=== PATIENT | male | born 1995 | race Hispanic/Latino ===

== ENCOUNTER 2023-07-23 05:53 | Day surgery (SDC) | payer OTHER ==
[2023-07-23] VITALS (12 sets, daily range): BP systolic 107–136; BP diastolic 68–92; PULSE 79–97; RESP 16–18
[~2023-07-23] VITALS: Ht 167.6 cm; Wt 156.8 kg
[~2023-07-23 05:53] MED LIST: ERGO500093 PO; TIRZ2.5P SQ
[2023-07-23] MEDS: 0.9%NACL 1000ML 1,000 ML IV ONE (07:14)
[2023-07-23] MEDS ORDERED: PROPOFOL 10 MG/ML 20ML VIAL IV ONE ×2 (08:14)
== END 2023-07-23 09:40 | disposition home or self-care (01) ==
LOC: DAH 05:53 → ENDO 05:53
PROVIDERS: ATTEND Internal Medicine Gastroenterology
DX: R12 Heartburn (principal); K29.50 Unspecified chronic gastritis without bleeding; K31.A0 Gastric intestinal metaplasia, unspecified; E66.01 Morbid (severe) obesity due to excess calories; E11.9 Type 2 diabetes mellitus without complications; Z88.0 Allergy status to penicillin; Z80.0 Family history of malignant neoplasm of digestive organs; Z68.43 Body mass index [BMI] 50.0-59.9, adult; Z79.01 Long term (current) use of anticoagulants
CPT/HCPCS: 82948 ×2; 43239; J7030 ×2; J2704 ×2; A4620; A4215 ×2; A4223; A7002; A4222; A4221; A4663; A4606; J3490